=== PATIENT | female | born 1950 | race African-American/Black ===

== ENCOUNTER 2016-10-22 10:54 | Outpatient (CLI) | payer MEDICARE, MEDICAID ==
--- NOTE | 2016-10-22 15:46 | ULT ---
ULTRASOUND RETROPERITONEUM COMPLETE: (RENAL) HISTORY: 66-year-old female follow-up renal cysts, ICD-10: N28.1. COMPARISON: Renal ultrasound of 10/02/13. FINDINGS: There is an approximately 2 x 1.5 x 1.5 cm cyst at the anterior right interpolar parenchyma, with a slight exophytic component. It is slightly larger than in 2014. Posterolaterally at the right interpolar cortex, there is a larger, approximately 4 x 4 x 4 cm round simple cyst with exophytic component. It has grown since the previous ultrasound. No hydronephrosis bilaterally. Right kidney measures approximately 9.5 x 4.5 x 5 cm. Left kidney measures 10 x 4 x 4.5 cm. Pre-void bladder volume is 55 mL. Post-void bladder volume is less than 5 mL. IMPRESSION: 1. Interval growth of two right renal cysts. 2. Otherwise negative. HARLEY Davis POS: [facility]
== END 2016-10-22 10:55 | disposition home or self-care (01) ==
LOC: NAV ULT 10:54
PROVIDERS: ATTEND Urology
DX: N28.1 Cyst of kidney, acquired (principal)
CPT/HCPCS: 76770

== ENCOUNTER 2016-12-23 08:37 | Outpatient (CLI) | payer MEDICARE, MEDICAID ==
[2016-12-23 12:29] LABS: #Basophils 0.1 thou/uL (0.0-0.2); #Eosinphils 0.1 thou/uL (0.0-0.7); #Lymphocytes 2.6 thou/uL (1.20-3.40); #Monocytes 0.5 thou/uL (0.11-0.59); #Neutrophils 4.3 thou/uL (1.40-6.50); %Eosinophils 1.5 % (0.0-10.0); %Lymphocytes 34.1 % (21.0-51.0); %Monocytes 6.3 % (0.0-10.0); %Neutrophils 57.2 % (42.0-75.0); Hemoglobin 12.6 g/dL (12.0-16.0); Mean Corpuscular HGB CONC 30.8 g/dL (32.0-36.0); Mean Corpuscular Volume 90.9 fl (81.0-99.0); Mean Platelet Volume 4.7 fL (7.4-10.4); Platelet Count 244 thou/uL (130-400); RBC Distribution Width 12.9 % (11.5-14.5); Red Blood Cell (RBC) Count 4.48 mill/uL (4.20-5.40); White Blood Cell (WBC) Count 7.6 thou/uL (4.8-10.8)
[2016-12-23 12:48] LABS: ALT (SGPT) 28 U/L (8-55); AST (SGOT) 28 U/L (5-34); Alkaline Phosphatase 66 U/L (40-150); Anion Gap 16 mmol/L (10-20); BUN (Urea Nitrogen) 19 mg/dL (9.8-20.1); Bilirubin, Direct 0.3 mg/dL (0.1-0.3); Bilirubin, Total 0.9 mg/dL (0.2-1.2); Calc. Creatinine Clearance 0 mL/min (70-130); Carbon Dioxide 22 mmol/L (23-31); Cardiac Risk 3.6 (Less than 4.5); Chloride 103 mmol/L (98-107); Cholesterol 173 mg/dl (< 200 Desired); Estimated GFR-MDRD 68; Glucose 141 mg/dL (80-115); HDL Cholesterol 48 mg/dL (>60 Neg Risk); LDL Cholesterol, Calculated 107 mg/dL; Potassium 3.8 mmol/L (3.5-5.1); Protein, Total 6.9 g/dL (6.0-8.3); Sodium 137 mmol/L (136-145); Triglycerides 89 mg/dL (Less than 150)
[2016-12-23 13:13] LABS: Hemoglobin A1c 5.7 % (4.0-6.0)
== END 2016-12-23 08:38 | disposition home or self-care (01) ==
LOC: NAVSJIPCSP 08:37
PROVIDERS: ATTEND Nurse Practitioner Family
DX: E78.5 Hyperlipidemia, unspecified (principal); E03.9 Hypothyroidism, unspecified; F41.1 Generalized anxiety disorder; I10 Essential (primary) hypertension
CPT/HCPCS: 36415; 80048; 80061; 80076; 83036; 84443; 85025

== ENCOUNTER 2018-01-19 16:37 | Emergency (ER) | payer MEDICARE, MEDICAID ==
[2018-01-19 17:54] LABS: ALT (SGPT) 24 U/L (8-55); AST (SGOT) 22 U/L (5-34); Alkaline Phosphatase 86 U/L (40-150); Anion Gap 14 mmol/L (10-20); BUN (Urea Nitrogen) 15 mg/dL (9.8-20.1); Bilirubin, Total 0.5 mg/dL (0.2-1.2); Calc. Creatinine Clearance 0 mL/min (70-130); Calcium 9.6 mg/dL (7.8-10.44); Carbon Dioxide 23 mmol/L (23-31); Chloride 108 mmol/L (98-107); Estimated GFR-MDRD 82; Globulin 2.8 g/dL (2.4-3.5); Glucose 89 mg/dL (80-115); Hemoglobin 12.3 g/dL (12.0-16.0); Mean Corpuscular HGB CONC 31.1 g/dL (32.0-36.0); Mean Corpuscular Hemoglobin 27.5 pg (27.0-31.0); Mean Corpuscular Volume 88.4 fL (78.0-98.0); Platelet Count 293 thou/uL (130-400); Potassium 4.1 mmol/L (3.5-5.1); Protein, Total 6.8 g/dL (6.0-8.3); RBC Distribution Width 12.6 % (11.5-14.5); Red Blood Cell (RBC) Count 4.48 mill/uL (4.20-5.40); Sodium 141 mmol/L (136-145); White Blood Cell (WBC) Count 7.5 thou/uL (4.8-10.8)
[2018-01-19 17:58] LABS: Troponin I Less than 0.010 ng/mL (< 0.028)
[2018-01-19 18:30] LABS: Eosinophils 4 % (0-10); Lymphocytes 31 % (21-51); MDiff Complete? YES; Monocytes 4 % (0-10); Neutrophil 61 % (42-75); PLT Morphology Comment Appears Adequate; RBC Morphology Normal
[2018-01-19 18:31] LABS: Bilirubin Negative (Negative); Blood, Urine Small (Negative); Clarity Clear (Clear); Glucose, Urine (Dipstick) Negative (Negative); Leukocyte Small (Negative); Nitrite Negative (Negative); Protein, Urine (Dipstick) Negative (Neg-Trace); Specific Gravity, Urine 1.015 (1.005-1.030); Urobilinogen 0.2 mg/dL (0.2-1.0)
[2018-01-19 18:54] LABS: Bacteria/HPF None Seen HPF (None Seen); RBC/HPF 0-3 HPF (0-3); Squamous Epithelial 0-3 HPF (0-3); WBC/HPF 0-3 HPF (0-3)
--- NOTE | 2018-01-19 20:19 | RAD ---
PA AND LATERAL OF THE CHEST: 01/19/18 INDICATION: Chest heaviness while lying down with difficulty catching breath and chest pain. COMPARISON: None. IMPRESSION: No acute cardiopulmonary abnormality. COMMENTS: No consolidation, pleural effusions or pneumothorax is evident. No acute osseous abnormality is noted . POS: [facility]
[2018-01-19 20:46] LABS: Troponin I Less than 0.010 ng/mL (< 0.028)
== END 2018-01-19 21:00 | disposition home or self-care (01) ==
LOC: NAV ERS 16:37
DX: R07.2 Precordial pain (principal); E03.9 Hypothyroidism, unspecified; E78.00 Pure hypercholesterolemia, unspecified; I10 Essential (primary) hypertension; F32.9 Major depressive disorder, single episode, unspecified; Z79.899 Other long term (current) drug therapy
CPT/HCPCS: 71046; 80053; 81003; 81015; 84443; 84484; 85025; 93005

== ENCOUNTER 2018-03-14 09:44 | Outpatient (CLI) | payer MEDICARE, MEDICAID ==
--- NOTE | 2018-03-14 10:55 | RAD ---
1.7 mm oblong density projecting over the right renal silhouette is presumed to be an ingested pill. If there is concern for nephrolithiasis, consider CT. IMPRESSION: 1. If there is concern for nephrolithiasis, consider CT. POS: [facility]
--- NOTE | 2018-03-14 12:09 | RAD ---
THREE VIEWS SACROILIAC JOINTS: Indication: Low back pain with sciatica. FINDINGS: There is mild degenerative change of the SI joints bilaterally. Subchondral brome plate is intact. No erosive changes evident. There is mild degenerative change of both hips. IMPRESSION: 1. 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 No periarticular erosive change noted. 2. Mild degenerative change of both hips. POS: [facility]
== END 2018-03-14 09:45 | disposition home or self-care (01) ==
LOC: NAV RAD 09:44
PROVIDERS: ATTEND Family Medicine
DX: M54.41 Lumbago with sciatica, right side (principal); M54.42 Lumbago with sciatica, left side; G89.29 Other chronic pain; M53.3 Sacrococcygeal disorders, not elsewhere classified; M16.0 Bilateral primary osteoarthritis of hip
CPT/HCPCS: 72100; 72202

== ENCOUNTER 2018-07-20 21:25 | Emergency (ER) | payer MEDICARE, MEDICAID ==
[2018-07-20 21:56] LABS: #Basophils 0.1 thou/uL (0.0-0.2); #Eosinphils 0.3 thou/uL (0.0-0.7); #Lymphocytes 2.6 thou/uL (1.20-3.40); #Monocytes 0.7 thou/uL (0.11-0.59); #Neutrophils 4.2 thou/uL (1.40-6.50); %Eosinophils 3.5 % (0.0-10.0); %Monocytes 8.7 % (0.0-10.0); %Neutrophils 53.8 % (42.0-75.0); Hemoglobin 12.5 g/dL (12.0-16.0); Mean Corpuscular Hemoglobin 28.6 pg (27.0-31.0); Mean Corpuscular Volume 89.4 fL (78.0-98.0); Mean Platelet Volume 6.2 fL (7.4-10.4); Platelet Count 278 thou/uL (130-400); RBC Distribution Width 12.9 % (11.5-14.5); Red Blood Cell (RBC) Count 4.37 mill/uL (4.20-5.40); White Blood Cell (WBC) Count 7.9 thou/uL (4.8-10.8)
--- NOTE | 2018-07-20 22:15 | RAD ---
AP VIEW CHEST: 07/20/18 HISTORY: Chest pain. AP view chest is obtained on 07/20/18. Comparison made to previous exam from 01/19/18. AP view chest demonstrates mild cardiomegaly. The lungs are well aerated. No evidence of active intra thoracic disease seen. No evidence of effusions, pneumonia, or pneumothorax seen. IMPRESSION: Unremarkable AP view chest. POS: [facility]
[2018-07-20 22:17] LABS: ALT (SGPT) 32 U/L (8-55); AST (SGOT) 28 U/L (5-34); Albumin 3.9 g/dL (3.4-4.8); Alkaline Phosphatase 82 U/L (40-150); Anion Gap 13 mmol/L (10-20); BUN (Urea Nitrogen) 23 mg/dL (9.8-20.1); Bilirubin, Total 0.5 mg/dL (0.2-1.2); Calc. Creatinine Clearance 0 mL/min (70-130); Calcium 9.7 mg/dL (7.8-10.44); Carbon Dioxide 21 mmol/L (23-31); Chloride 111 mmol/L (98-107); Estimated GFR-MDRD 77; Glucose 139 mg/dL (80-115); Potassium 3.7 mmol/L (3.5-5.1); Protein, Total 6.9 g/dL (6.0-8.3); Sodium 141 mmol/L (136-145)
== END 2018-07-20 22:44 | disposition home or self-care (01) ==
LOC: NAV ERS 21:25
DX: R07.89 Other chest pain (principal); E03.9 Hypothyroidism, unspecified; E78.5 Hyperlipidemia, unspecified; I10 Essential (primary) hypertension; F32.9 Major depressive disorder, single episode, unspecified; Z79.899 Other long term (current) drug therapy
CPT/HCPCS: 36415; 71045; 80053; 84484; 85025; 93005

== ENCOUNTER 2021-02-27 09:45 | Emergency (ER) | payer MEDICARE, MEDICAID ==
[2021-02-27] MEDS ORDERED: Acetaminophen 500 MG TAB ONE (11:16)
== END 2021-02-27 11:20 | disposition home or self-care (01) ==
LOC: NAV ERS 09:45
DX: S40.011A Contusion of right shoulder, initial encounter (principal); S80.02XA Contusion of left knee, initial encounter; S80.01XA Contusion of right knee, initial encounter; E03.9 Hypothyroidism, unspecified; E78.5 Hyperlipidemia, unspecified; I10 Essential (primary) hypertension; Z79.899 Other long term (current) drug therapy; W19.XXXA Unspecified fall, initial encounter